=== PATIENT | male | born 1960 | race Caucasian/White ===

== ENCOUNTER → 2022-09-19 14:01 | Outpatient (BNVA) | payer MEDICAID, SELFPAY | PROVIDERS: Visit Provider Nurse Practitioner Family | DX: S89.91XA Unspecified injury of right lower leg, initial encounter (principal) | CPT/HCPCS: 73562 ==

== ENCOUNTER → 2022-09-23 12:48 | Outpatient (BNVA) | payer MEDICAID, SELFPAY | PROVIDERS: Referring Provider Nurse Practitioner Family; Visit Provider Orthopaedic Surgery | DX: S89.90XA Unspecified injury of unspecified lower leg, initial encounter (principal) | CPT/HCPCS: 99203 ==

== ENCOUNTER 2022-10-22 07:25 | Outpatient (CLI) | payer MEDICAID, SELFPAY ==
--- NOTE | 2022-10-22 08:00 | MR_ITS ---
WS: [id number] MRI RIGHT KNEE HISTORY: RIGHT knee pain. Injury. COMPARISON: RIGHT knee radiograph 09/19/2022 Anterior cruciate ligament: Intact. Posterior cruciate ligament: Intact. Medial collateral ligament: Moderate amount of fluid surrounding the MCL consistent with a mild to mo derate sprain. No full-thickness tear is identified. There is a partial tear in the proximal MCL. Posterior lateral corner structures: Intact. Medial menisci: Horizontal tear in the posterior horn extends towards the inferior articular surface and also involves the free edge. There is significant blunting and increased fluid at the free edge. Tear also extends towards the meniscal root. Complex component of the tear towards the meniscal root. Lateral meniscus: Intact. Normal signal, size and shape. Extensor mechanism: Distal quadriceps tendon and patellar tendons are intact. Fluid and soft tissue: Moderate to large suprapatellar joint effusion. Small amount of edema surround ing the knee. 3.5 cm Aguirre's cyst. There is fluid external to the Aguirre's cyst suggesting a partial t ear. Osseous and articular structures: Patellofemoral compartment: No marrow edema. No dislocation. Cartilage is intact. Medial compartment: Mild narrowing medial compartment. Contusion type injury in the cartilage of the femoral condyle along the weightbearing surface. No full-thickness defects within the cartilage. Lateral compartment: Very mild narrowing of the lateral compartment with thinning and fissuring of th e cartilage. Small lobulated cystic mass measuring 2.0 x 1.2 cm posterior to the femoral metaphysis. There may be a small tract connecting to additional fluid along the posterior PCL. This may be a ganglion. MR/MR knee RT wo con* [id number] IMPRESSION: 1. Complex tear posterior horn medial meniscus. 2. Partial tear medial collateral ligament. 3. Moderate to large suprapatellar effusion. 4. Aguirre's cyst. 5. Lobulated cystic posterior to the femoral condyle. There may be a small tra ck of fluid extending to the posterior PCL. There is additional fluid along the PCL. Ganglion most likely.
== END 2022-10-22 07:26 | disposition home or self-care (01) ==
LOC: RAD 07:25
PROVIDERS: Visit Provider Emergency Medicine
DX: M25.461 Effusion, right knee; M71.21 Synovial cyst of popliteal space [Baker], right knee; S83.241A Other tear of medial meniscus, current injury, right knee, initial encounter; S83.411A Sprain of medial collateral ligament of right knee, initial encounter; X58.XXXA Exposure to other specified factors, initial encounter
CPT/HCPCS: 73721

== ENCOUNTER → 2022-10-28 15:14 | Outpatient (BNVA) | payer MEDICAID, SELFPAY | PROVIDERS: Referring Provider Emergency Medicine; Visit Provider Orthopaedic Surgery | DX: S83.241A Other tear of medial meniscus, current injury, right knee, initial encounter (principal); X58.XXXA Exposure to other specified factors, initial encounter | CPT/HCPCS: 99213 ==

== ENCOUNTER 2022-11-12 06:54 | Day surgery (SDC) | payer MEDICAID, SELFPAY ==
[2022-11-11 14:14] VITALS: BMI 23.7
[2022-11-12] VITALS (7 sets, daily range): BP systolic 124–155; BP diastolic 72–96; PULSE 61–97; RESP 16–18; TEMP 36.3–36.6; O2SAT 95–100
[2022-11-12] MEDS: sodium chloride 0.9% 1,000 ML 30 ML IV (08:11)
--- NOTE | 2022-11-12 09:15 | ANES.PREANE2 ---
Pre-Anesthetic Assessment Height/Weight: Height 1.88 m Weight 83.915 kg Temp Pulse Resp BP Pulse Ox O2 Del Method 97.4 F L 61 16 144/91 99 11/12/22 07:30 11/12/22 07:30 11/12/22 07:30 11/12/22 07:30 11/12/22 07:30 11/12/22 07:35 Preop Diagnosis: Right medial meniscal tear Operation Date: 11/12/22 09:15 Proposed Procedures p right knee arthroscopy with medial meniscectomy/ [id number] S83.241A(Right) - Neftali Desir MD s Meniscectomy(Right) - Neftali Desir MD Familial anesthetic complications: none Was Beta Evelnye taken within 24 hours: Yes Was Clonidine taken within 24 hours: N/A Last intake: Intake Last Liquid Date 11/11/22 Last Liquid Time 20:00 Last Solid Date 11/11/22 Last Solid Time 19:00 Social Tobacco and No alcohol Exam alert, oriented x 3 and regular rate & rhythm Airway Submandibular: within normal limits Cervical ROM: within normal limits Mallampati: Class II Dentition: chipped Comments: Comments: very poor dentition, missing most Pulmonary Chronic Obstructive Pulmonary Disease CV/HEM Congestive Heart Failure (??good fxnl status) and Hypertension GI Gastroesophageal Reflux Disease Metabolic Hyperlipidemia Anesthetic Plan ASA status: 3 Anesthesia: General Medications/Allergies Home Medications Medication Instructions Recorded Confirmed Last Taken Type lorazepam 0.5 mg tablet 0.5 mg PO DAILY PRN Anxiety 10/05/22 11/12/22 11/11/22 20:00 History losartan 25 mg tablet 25 mg PO DAILY 10/05/22 11/11/22 11/11/22 20:00 History pantoprazole 40 mg tablet,delayed 40 mg PO DAILY 10/05/22 11/11/22 11/12/22 05:30 History release (Protonix) tamsulosin 0.4 mg capsule (Flomax) 0.4 mg PO DAILY 10/05/22 11/11/22 11/11/22 20:00 History carvedilol 6.25 mg tablet (Coreg) 6.25 mg PO DAILY 11/11/22 11/11/22 11/12/22 05:30 History simvastatin 10 mg tablet 10 mg PO DAILY 11/11/22 11/11/22 11/11/22 20:00 History Allergies Allergy/AdvReac Type Severity Reaction Status Date / Time codeine Allergy Unknown Verified 10/28/22 16:05 Sulfa (Sulfonamide Allergy Unknown Verified 10/28/22 16:05 Antibiotics) venlafaxine [From Effexor] Allergy Unknown Verified 10/28/22 16:05 zoloft Allergy Unknown Uncoded 10/28/22 16:05 Current Medications Generic Name Dose Route Start Last Admin Trade Name Freq PRN Reason Stop Dose Admin Sodium Chloride 1,000 mls @ 30 mls/hr 11/12/22 07:15 11/12/22 08:11 Sodium Chloride 0.9% IV 11/13/22 07:14 30 mls/hr .Q24H RADHA Administration Data Anesthesia Cardiac Studies: No Data to Display
--- NOTE | 2022-11-12 09:34 | W.PM.OPSUD ---
Surgery/Procedure H&P Update DATE OF PROCEDURE: November 12, 2022 DATE H&P PERFORMED: 10/28/22 H&P UPDATE INFORMATION: I have reviewed H&P completed within last 30 days PREOP DIAGNOSIS: Right medial meniscal tear PLANNED PROCEDURE: Operation Date: 11/12/22 09:15 Proposed Procedures p right knee arthroscopy with medial meniscectomy/ [id number] S83.241A(Right) - Neftali Desir MD s Meniscectomy(Right) - Neftali Desir MD
[2022-11-12] MEDS: ceFAZolin 2,000 MG in sodium chloride 0.9% (plus) 50 ML 100 MG IV (09:43)
[2022-11-12] MEDS: morphine 4 mg/mL SDV 1 mL 8 MG XX (10:19)
--- NOTE | 2022-11-12 10:57 | PM.OP ---
Operative Report Date of procedure: November 12, 2022 Pre-op diagnosis: Preop Diagnosis Right medial meniscal tear Post-op diagnosis: same Post-op diagnosis: Complex tear right medial meniscus, grade II chondromalacia medial femoral condyle, grade III chondromalacia patella Procedure done: Arthroscopic right medial meniscectomy, arthroscopic chondroplasty patella and medial femoral condyle Pathology: none sent Surgeon: Neftali Desir Estimated blood loss (mL): 5 Complications: None Findings: The patient had a complex tear of his right posterior third of his medial meniscus involving central flaps and horizontal cleavage involving approximately the central 50% of the medial meniscus. He had small cartilaginous flaps centrally over the weightbearing aspect of the medial femoral condyle over an area approximately 1 cm? but no exposed subchondral bone. He had generalized thinning over the cartilage globally about the patella with peripheral fibrillation but no exposed subchondral bone Condition: stable Disposition: PACU Brief History: The patient sustained a traumatic injury on 09/18/2022 when he stepped in a hole twisting in the knee with immediate pain. An MRI on 10/22/2022 revealed complex tearing of his medial meniscus. He is taken to the operating room to address meniscal tearing Procedure: The patient was taken to the operating room and given a general anesthesia. He was prepped and draped in the supine position with his right leg exposed. The knee was infiltrated with 30 cc of 0.5% Marcaine with epi and 8 mg of morphine. A timeout was performed. The knee was then entered through the standard inferior medial and inferior lateral portal. The diagnostic portion arthroscopy was performed. The complex tearing the medial meniscus was noted as well as areas of chondromalacia over the medial femoral condyle and patella as described above. Attention was then focused on the medial meniscus. Utilizing a basket the unstable central flap was removed revealing areas of horizontal cleavage. These were lightly debrided back removing approximately 50% of the posterior third of the medial meniscus. The rim was then trimmed back with the [employer] cautery leaving approximately a stable rim of 50% of the meniscus. Areas of fibrillation centrally over the medial femoral condyle were probed and found to have reasonably stable margins. An incisor shaver and later [employer] probe were introduced debriding unstable margins back leaving area approximately a centimeter in diameter of a partial-thickness cartilage loss with stable edges. The lateral compartment was then inspected and found to be healthy. The patellofemoral joint was visualized. Fibrillation and fraying was identified throughout the patella. This was lightly debrided back with an incisor shaver and [employer] probe creating more stable base. Where was fairly global about the patella but at no point was subchondral bone noted. The knee was irrigated with saline. Portals were closed with 3-0 Prolene. Sterile dressings were applied. The patient was extubated and taken to recovery in stable condition.
[2022-11-12] MEDS: HYDROcodone-acetaminophen 5-325 mg Tablet 1 TAB PO (12:25)
--- NOTE | 2022-11-12 15:14 | ANE.PACU2 ---
Inpatient post-anesthesia follow up: Airway intact: Yes Vital signs: Temperature 97.8 F Pulse Rate 74 Respiratory Rate 16 Blood Pressure 143/88 Pulse Oximetry 95 Oxygen Delivery Me thod Room Air Oxygen Flow Rate 4 Fraction of Inspir ed Oxygen Hydration adequate: Yes Nausea and vomiting: No Pain level: 2 Mental status: Baseline
== END 2022-11-12 12:35 | disposition home or self-care (01) ==
PROVIDERS: Visit Provider Orthopaedic Surgery
PROC: (CPT 29870; principal; 2022-11-12 09:05)
PROC: (CPT 29881; 2022-11-12 09:05)
DX: S83.241A Other tear of medial meniscus, current injury, right knee, initial encounter (principal); X58.XXXA Exposure to other specified factors, initial encounter; M22.41 Chondromalacia patellae, right knee; J44.9 Chronic obstructive pulmonary disease, unspecified; I11.0 Hypertensive heart disease with heart failure; I50.9 Heart failure, unspecified; K21.9 Gastro-esophageal reflux disease without esophagitis
CPT/HCPCS: 29881; J0690; J2270; J2704; J3010; J3490; J7030

== ENCOUNTER → 2022-11-25 10:57 | Outpatient (BNVA) | payer MEDICAID, SELFPAY | PROVIDERS: Visit Provider Orthopaedic Surgery | DX: Z98.890 Other specified postprocedural states (principal) | CPT/HCPCS: 99024 ==

== ENCOUNTER → 2023-07-07 16:45 | Outpatient (BNVA) | payer MEDICAID, SELFPAY | PROVIDERS: Visit Provider Nurse Practitioner Family | DX: R10.32 Left lower quadrant pain (principal) | CPT/HCPCS: 74018 ==

== ENCOUNTER → 2023-11-04 17:12 | Outpatient (BNVA) | payer MEDICAID, SELFPAY | PROVIDERS: Visit Provider Emergency Medicine | DX: S61.219A Laceration without foreign body of unspecified finger without damage to nail, initial encounter (principal); X58.XXXA Exposure to other specified factors, initial encounter | CPT/HCPCS: 73130 ==